=== PATIENT | male | born 1990 ===

== ENCOUNTER 2023-09-14 07:00 | Outpatient (RCR) | payer OTHER, SELFPAY ==
--- NOTE | 2023-08-03 08:15 | MHC.PT.EP ---
[facility] [place] Office [place] Office [place] Office [address] Valentina Díaz [address] [phone] F: [phone] F: [phone] F: [phone] F: [phone] Physical Therapy Plan of Care Date of Evaluation: 08/03/23 Date of Surgery: NA Diagnosis: CERVICAL SPRAIN Assessment: Pt IS 33 YO M REFERRED TO PT FROM DR MEYERS WITH CERVICAL SPRAIN WITHOUT SPECIFIC INJURY. Pt WORKS AT [employer]. PRESENTS WITH SOME POSTURAL LIMITATIONS (FWD HEAD, TIGHT PECS) AND SOME UT COMPENSATION NOTED. SHOULD BENEFIT FROM PT TO HELP IMPROVE OVERALL FLEXIBILITY AND STRENGTH IN UPPER BODY Frequency and Duration: The patient will be seen 2X/WK X 3-4 WKS Short Term Goals: 1. INCREASED POSTURE AWARENESS AND AWARENESS NECK CARE 2. 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 I HEP WITH DC EX PLAN 2. DECREASED CERV PAIN AT LEAST 50% WITH ADLS Treatment Plan: Modalities to reduce pain, spasms and effusion. Manual therapy to restore motion and function. Therapeutic exercise to improve strength and flexibility. Neuromuscular re-education for posture and balance. Therapeutic activities to return to functional activities of daily living. Electronically signed by: JEFFREY GRADY PT Please sign and return to therapist. Thank you for your referral.
--- NOTE | 2023-09-28 07:51 | MHC.PT.DC ---
[facility] [place] Office [place] Office [place] Office [address] [place] [address] Dr Valentina Díaz [address] [phone] F: [phone] F: [phone] F: [phone] F: [phone] Physical Therapy Discharge Report Diagnosis: CERVICAL SPRAIN Date of Surgery: NA Date of Evaluation: 08/03/23 Date of Discharge: 09/28/23 Treatments to Date: 8 Cancellations to Date: No Shows to Date: Discharge Status: Improved Function Independent with HEP Discharge Summary: Pt HAS HAD [address] WORK, HOME PROG FOR STRETCH/STRENGTHEN. HAS HAD SOME IMPROVEMENT IN SXS, BUT HAS PLATEAUED AT THIS TIME. HAS FU WITH MD IN OCT (TO ASSESS SXS AT THAT TIME RE FURTHER NEED FOR PT) Electronically signed by: JEFFREY GRADY PT Please sign and return to therapist. Thank you for your referral.
== END 2023-09-28 07:52 | disposition home or self-care (01) ==
LOC: HO.PTWFD 07:00
PROVIDERS: PCP Internal Medicine; Visit Provider Psychiatry & Neurology Neurology
DX: S13.9XXD Sprain of joints and ligaments of unspecified parts of neck, subsequent encounter (principal)
CPT/HCPCS: 97014; 97110; 97140; 97161; 97530

== ENCOUNTER 2025-08-14 09:19 | Outpatient (AMB) | payer OTHER, SELFPAY ==
--- NOTE | 2025-08-14 09:24 | A.OFFVIS_ITS ---
Intake Visit Reasons: 6m Allergies No Known Allergies Allergy (Verified 08/14/25 09:27) Medication List - Last Reconciled 08/14/25 by May Warren CNP meloxicam 15 mg PO DAILY methadone 24 mg PO DAILY HPI Comments Details: He was doing okay. No significant neck pain. He has not been taking cyclobenzaprine and has not needed meloxicam recently. He had some occasional ringing in his ears which he notices may be triggered by stress. He stopped venlafaxine. Some ongoing anxiety and was still working with therapist. He was taking methadone 24mg/day. No further shaking in hands. He got off methadone for about 5 months,?but was having shaking in his hands, along with a?lot of anxiety and panic attacks to the point where he passed out and was seen at [facility]. He restarted methadone in 01/2025. He was having a lot of anxiety and was working with therapist and psychiatrist who?started venlafaxine around this time. He first tried Lexapro from PCP, but he was not sleeping with medication. On methadone maintenance program for previous narcotic habits. 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 Completed PT and did home exercises in the past. Pain previously increased when he stopped cyclobenzaprine. Popping nose in ears better. No hearing loss. No dizziness. Sharp pains behind ear have resolved. Hx of feeling tightness in neck and popping in both ears when moving neck since around 2021. No hx of neck injury. Had near syncopal episode when traveling by air to [place], he was anxious food may contain nuts as he has allergy to nuts. [facility] Medical History (Updated 08/14/25 @ 09:27 by May Warren CNP) Kidney stones History of narcotic addiction Neck pain Cervical sprain Anxiety Review of Systems Const Denies chills, Denies daytime sleepiness, Denies difficulty sleeping, Denies fatigue, Denies fever(s), Denies frequent falls, Denies headache(s), Denies increased appetite, Denies poor appetite, Denies snoring, Denies weakness, Denies weight gain and Denies weight loss Eyes Denies loss of vision ENT Denies vertigo, Denies dizziness, Denies headache(s) and Reports neck pain Card Denies chest pain at rest, Denies chest pain with activity, Denies syncope, Denies leg edema, Denies palpitations, Denies dyspnea and Denies dyspnea on exertion Resp Denies cough, Denies dyspnea, Denies dyspnea on exertion and Denies snoring GI Denies abdominal pain, Denies constipation, Denies heartburn, Denies diarrhea and Denies nausea Denies urinary frequency, Denies urinary incontinence and Denies urinary urgency Musc Denies abnormal gait, Denies back pain, Denies myalgias, Denies arthralgias, Reports neck pain, Denies numbness and Denies tingling Neuro Denies abnormal gait, Denies vertigo, Denies dizziness, Denies syncope, Denies frequent falls, Denies headache(s), Denies lack of coordination, Denies loss of vision, Denies memory loss, Denies numbness, Denies Other visual disturbances, Denies restless legs, Denies seizure-like activity, Denies tingling, Denies paresthesias, Denies tremor(s) and Denies weakness Psych Denies anxiety, Denies depression, Denies auditory hallucinations, Denies memory loss and Denies visual hallucinations Endo Denies fatigue and Denies palpitations Physical Exam Const Other: General Appearance:? normal, in no acute distress. Heart:? S1, S2 normal, no murmurs. Lungs:? clear anteriorly and posteriorly. Musculoskeletal:? normal. Extremities:? no edema. Psych:? alert, oriented, cognitive function intact, cooperative with exam. Neuro Other: Abnormal Neurological Findings:?none.? Mental Status: alert and oriented X 3. Normal attention, orientation, memory, and affect. Cranial Nerves: Pupils are equal, round, and reactive to light. External ocular muscles are intact. Visual henry are full, no ptosis. Face is symmetrical, no facial weakness or droop. Facial sensations are normal. Tongue protrudes in midline. Palate elevates symmetrically. Shoulder shrugging is normal Motor Examination: Normal muscle tone, bulk and strength. No atrophy or fasciculations. No drift of the extended upper extremities. DTR 2+. Plantars are flexor. Sensory Exam: Normal light touch, temperature, pinprick, vibration, and joint- position sensations. Rhomberg sign is absent. Coordination: No ataxia. No titubation. Gait Exam: Within normal limits. Cerebellar Signs: Jxesko-[id number]-lfyd is okay. Extrapyramidal System: No tremor, rigidity with normal facial expressions. No bradykinesia. No bradyphrenia. Normal arm swing and posture. No propulsion or retropulsion. Speech: Normal. Assessment & Plan Assessment & Plan (1) Cervical sprain: Code(s): S13.9XXA - Sprain of joints and ligaments of unspecified parts of neck, initial encounter Category: Medical Qualifiers: Encounter type: subsequent encounter Qualified Code(s): S13.9XXD - Sprain of joints and ligaments of unspecified parts of neck, subsequent encounter Plan: Continue meloxicam 15mg 1 tablet daily as needed for pain. He was no longer taking cyclobenzaprine. (2) Neck pain: Code(s): M54.2 - Cervicalgia Category: Medical (3) Anxiety: Code(s): F41.9 - Anxiety disorder, unspecified Category: Medical Plan . Medications: New meloxicam 15 mg PO DAILY PRN 30 tabs 2RF pain 30 days Coding Level of Care Code Est Pt Level 3 (08178) Diagnoses Neck sprain, subsequent encounter S13.9XXD Encounter type: subsequent encounter Neck pain M54.2 Anxiety F41.9
--- OUTSIDE RECORDS SUMMARY | 2025-08-14 10:13 | XMS_ITS | Clinical Summary ---
Author Organization [address] 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 Track Name Role Phone Cristel Hoffmann NP Primary Care Provider Allergies No known active allergies Medications venlafaxine (EFFEXOR) 37.5 mg tablet START WITH 1 TABLET DAILY FOR 2 WEEKS AND IF WELL TOLERATED INCREASE 1 TABLET TWICE DAILY Active methadone (DOLOPHINE) 0.1 mg/mL solution Activ e Encounters Date Type Department Care Team Description 06/24/2025 8:11 AM EDT - 06/24/2025 11:59 PM EDT Hospital Encounter CT Scan - [address] [phone] Pulmonary nodule Discharge Disposition: Home or Self Care 06/17/2025 8:45 AM EDT Office Visit Pulmonology - [place] [address] [facility] [address] [place] [id number] Freida Marin MD Pulmonary nodule (Primary Dx); Tobacco abuse 06/13/2025 1:00 PM EDT - 06/13/2025 11:59 PM EDT Hospital Encounter Xray - [address] [phone] Abnormal x-ray Discharge Disposition: Home or Self Care from Last 3 Months Social History Tobacco Use Types Packs/Day Years Used Date Smoking Tobacco: Every Day Cigarettes Smokeless Tobacco: Never Tobacco Cessation:Ready to Q uit: Not Asked; Counseling Given: Not Answered Comments:Smoking 1 cigs pk daily Alcohol Use Standard Drinks/Week Comments Not Currently 0 (1 standard drink = 0.6 oz pur e alcohol) Sex and Gender Information Value Date Recorded Sex Assigned at Not on file Legal Sex Male 5:50 PM EST Gender Identity Not on file Sexual Orientation Not on file Obstetrics History Last Filed Vital Signs Vital Sign Reading Time Taken Comments Blood Pressure 122/64 06/17/2025 9:11 AM EDT Pulse 80 06/17/2025 9:11 AM EDT Temperature 36.2 C (97.1 F) 06/17/2025 9:11 AM EDT Respiratory Rate 20 06/17/2025 9:11 AM EDT Oxygen Saturation 99% 06/17/2025 9:11 AM EDT Inhaled Oxygen Concentration - - Weight 82 kg (180 lb 12.8 oz) 06/17/2025 9:11 AM EDT Height 175.3 cm (5' 9 ) 06/17/2025 9:11 AM EDT Body Mass Index 26.7 06/17/2025 9:11 AM EDT Plan of Treatment Health Maintenance Due Date Last Done Comments DTaP,Tdap,and Td Vaccines (1 - Tdap) 02/16/2007 Hepatitis B Vaccines (1 of 3 - 19+ 3-dose series) 02/16/2007 Pneumococcal Vaccine: Pediatrics (0 to 5 Years) and At-Risk Patients (6 to 49 Years) (1 of 2 - PCV) 02/16/2007 HPV Vaccines (1 - 3-dose SCD M series) 02/16/2015 Depression Screening 10/10/2024 Cholesterol Screening (Lipid Panel) 01/31/2025 HIV Screening 01/31/2025 Hepatitis C Screening 01/31/2025 Social Influencers of Health Screening 01/31/2025 COVID-19 Vaccine (3 - 2024-2 6 season) 2025 10/27/2021, 10/06/2021 Influenza Vaccine (#1) 2025 RSV Immunization Adult Patients (1 - 1-dose 75+ series) 02/16/2063 HIB Vaccines Aged Out No longer eligi ble based on patient's age to complete this topic Hepatitis A Vaccines Aged Out No long er eligible based on patient's age to complete this topic IPV Vaccines Aged Out No longer eligi ble based on patient's age to complete this topic MMR Vaccines Aged Out No longer eligi ble based on patient's age to complete this topic Meningococcal ACWY Vaccine Aged Out N o longer eligible based on patient's age to complete this topic Meningococcal B Vaccine Aged Out No l onger eligible based on patient's age to complete this topic RSV Immunization Patients Under 20 months Aged Out No longer eligible b ased on patient's age to complete this topic Varicella Vaccines Aged Out No longer eligible based on patient's age to complete this topic Procedures Procedure Name Priority Date/Time Associated Diagnosis Comments CT CHEST WO CONTRAST Routine 06/24/2025 8:22 AM EDT Pulmonary nodule XR CHEST 2 VIEWS Routine 06/13/2025 1:17 PM EDT Abnormal x-ray from Last 3 Months Results * CT Chest wo Contrast (06/24/2025 8:22 AM EDT) Anatomical Region Laterality Modality Body Computed Tomogra phy 06/24/2025 9:42 AM EDT Narrative 06/24/2025 9:[address] without intravenous contrast. History interstitial lung disease. Examination was performed on multidetector scanner without administration of intravenous contrast. Comparison with plain films of the chest, latest from 06/13/2025. There is a volume loss in the left lung with mild mediastinal shift to the left. Right lung is hyperinflated. There are coarse linear opacities as well as the area of air bronchogram in the left lower lobe probably due to atelectasis versus scarring. There is arm pleural thickening along the cortical margin extending from the left midlung zone to the CP angle. There is narrowing of the left lower lobe bronchus. No obvious obstructing lesions were identified. There is no evidence of pulmonary nodules. There is no evidence of from interstitial lung disease. There is no evidence of pleural or pericardial effusion. Visualized portions of the abdominal organs appear to be unremarkable. There is no suspicious bone abnormalities. CONCLUSIONS: Volume loss in the left hemithorax with mild mediastinal shift to the left. Coarse linear opacities with air bronchogram in the left lower lobe most likely due to atelectasis / scarring. Mild pleural thickening from the mid lung zone to the CP angle. Narrowing of the left lower lobe bronchus without visible obstructing lesions. -------- FINAL REPORT -------- Dictated By: Cristel Vazquez Dictated Date: 06/24/2025 09:42 ET Assigned Physician: Cristel Vazquez Reviewed and Electronically Signed By: Cristel Vazquez Signed Date: 06/24/2025 09:52 ET Workstation ID: [id number] Transcribed By: Self Edit Transcribed Date: 06/24/2025 09:42 ET Procedure Note Cristel Vazquez MD - 06/24/[address] without intravenous contrast. History interstitial lung disease. Examination was performed on multidetector scanner without administrationof intravenous contrast. Comparison with plain films of the chest, latestfrom 06/13/2025. There is a volume loss in the left lung with mild mediastinal shift to theleft. Right lung is hyperinflated. There are coarse linear opacities aswell as the area of air bronchogram in the left lower lobe probably due toatelectasis versus scarring. There is arm pleural thickening along thecortical margin extending from the left midlung zone to the CP angle.There is narrowing of the left lower lobe bronchus. No obvious obstructinglesions were identified. There is no evidence of pulmonary nodules. There is no evidence of frominterstitial lung disease. There is no evidence of pleural or pericardial effusion. Visualizedportions of the abdominal organs appear to be unremarkable. There is no suspicious bone abnormalities. CONCLUSIONS: Volume loss in the left hemithorax with mild mediastinalshift to the left. Coarse linear opacities with air bronchogram in theleft lower lobe most likely due to atelectasis / scarring. Mild pleuralthickening from the mid lung zone to the CP angle. Narrowing of the leftlower lobe bronchus without visible obstructing lesions. -------- FINAL REPORT -------- Dictated By: Cristel Vazquez Dictated Date: 06/24/2025 09:42 ET Assigned Physician: Cristel Vazquez Reviewed and Electronically Signed By: Cristel Vazquez Signed Date: 06/24/2025 09:52 ET Workstation ID: [id number] Transcribed By: Self Edit Transcribed Date: 06/24/2025 09:42 ET us Freida Marin MD IMG CT PROCEDURES Final Result * XR Chest 2 Views (06/13/2025 1:17 PM EDT) Anatomical Region Laterality Modality Body Radiographic Linda ging 06/14/2025 11:3 0 AM EDT Impressions 06/14/2025 11:36 AM EDT Persistent but decrease in left lower lung zone airspace opacities. Differential considerations include pneumonia versus scarring versus atelectasis. -------- FINAL REPORT -------- Dictated By: Phyllis Garrett Dictated Date: 06/14/2025 11:30 ET Assigned Physician: Phyllis Garrett Reviewed and Electronically Signed By: Phyllis Garrett Signed Date: 06/14/2025 11:36 ET Workstation ID: [id number] Transcribed By: Self Edit Transcribed Date: 06/14/2025 11:30 ET Narrative 06/14/2025 11:36 AM EDT HISTORY: COPD, surveillance TECHNIQUE: PA and lateral radiographs of the chest COMPARISON: Chest radiograph from 12/11/2024 The cardiomediastinal silhouette is within normal limits. There is interval reduction in the previously identified left lower lung zone airspace opacities. There is blunting of left costophrenic angle which is grossly stable. Stable scarring within the left midlung zone. The osseous structures are intact. Procedure Note Phyllis Garrett MD - 06/14/2025 HISTORY: COPD, surveillance TECHNIQUE: PA and lateral radiographs of the chest COMPARISON: Chest radiograph from 12/11/2024 The cardiomediastinal silhouette is within normal limits. There isinterval reduction in the previously identified left lower lung zoneairspace opacities. There is blunting of left costophrenic angle which isgrossly stable. Stable scarring within the left midlung zone. The osseousstructures are intact. IMPRESSION: Persistent but decrease in left lower lung zone airspace opacities.Differential considerations include pneumonia versus scarring versusatelectasis. 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
== END 2025-08-14 09:35 | disposition home or self-care (01) ==
LOC: HO.HSM 09:19
PROVIDERS: PCP Internal Medicine; Visit Provider Registered Nurse
DX: S13.9XXD Sprain of joints and ligaments of unspecified parts of neck, subsequent encounter (principal); M54.2 Cervicalgia; F41.9 Anxiety disorder, unspecified
CPT/HCPCS: 99213

== ENCOUNTER → 2025-08-14 09:19 | Outpatient (BNVA) | payer OTHER, SELFPAY | PROVIDERS: PCP Internal Medicine; Visit Provider Registered Nurse | DX: S13.9XXD Sprain of joints and ligaments of unspecified parts of neck, subsequent encounter (principal); F41.9 Anxiety disorder, unspecified; Z79.1 Long term (current) use of non-steroidal anti-inflammatories (NSAID); X58.XXXD Exposure to other specified factors, subsequent encounter | CPT/HCPCS: 99212 ==